=== PATIENT | male | born 1990 | race Caucasian/White ===

== ENCOUNTER 2018-03-18 13:42 | Emergency (ER) | payer MEDICAID ==
[~2018-03-18] VITALS: Ht 177.8 cm; Wt 133.4 kg
[2018-03-18 14:42] VITALS: Ht 177.8 cm; Wt 133.4 kg
[2018-03-18 16:34] LABS: BASOPHIL % 1.5 % (0-2); PLATELET COUNT 297 x10^3mcL (130-400); RED CELL DISTRIBUTION WIDTH 13.4 % (11.5-14.5)
[2018-03-18 16:55] LABS: CALCIUM 9.7 mg/dL (8.5-10.1); CARBON DIOXIDE 29.5 mmol/L (21-32); CHLORIDE SERUM 103 mmol/L (98-107); CREATININE SERUM 0.9 mg/dL (0.7-1.3); GFR1 > 60 mL/min; GLUCOSE SERUM 90 mg/dL (74-106); POTASSIUM SERUM 3.9 mmol/L (3.5-5.1); SODIUM SERUM 142 mmol/L (136-145)
[2018-03-18 17:00] LABS: ALKALINE PHOSPHATASE 79 U/L (46-116); ALT/SGPT 54 U/L (16-63); AST/SGOT 15 U/L (15-37); BILIRUBIN TOTAL 0.76 mg/dL (0.20-1.00); LIPASE 97 IU/L (73-393); TOTAL PROTEIN, SERUM 7.9 g/dL (6.4-8.2)
[2018-03-18 18:26] VITALS: BP 126/66
== END 2018-03-18 18:26 | disposition home or self-care (01) ==
LOC: ED 13:42
PROVIDERS: Emergency Medicine
DX: K57.92 Diverticulitis of intestine, part unspecified, without perforation or abscess without bleeding (principal); Z90.89 Acquired absence of other organs
CPT/HCPCS: 36415; J1885

== ENCOUNTER 2018-05-10 18:49 | Inpatient (IN) | payer MEDICAID ==
[~2018-05-10] VITALS: Ht 177.8 cm; Wt 126.3 kg
[2018-05-10 19:04] VITALS: Ht 177.8 cm; Wt 126.3 kg
[2018-05-10 21:34] LABS: BASOPHIL % 0.4 % (0-2); PLATELET COUNT 264 x10^3mcL (130-400); RED CELL DISTRIBUTION WIDTH 13.5 % (11.5-14.5)
[2018-05-10 21:44] LABS: CALCIUM 10.3 mg/dL (8.5-10.1); CARBON DIOXIDE 25.6 mmol/L (21-32); CHLORIDE SERUM 102 mmol/L (98-107); CREATININE SERUM 0.9 mg/dL (0.7-1.3); GFR1 > 60 mL/min; GLUCOSE SERUM 127 mg/dL (74-106); POTASSIUM SERUM 3.3 mmol/L (3.5-5.1); SODIUM SERUM 139 mmol/L (136-145)
[2018-05-10 22:00] LABS: T3 TOTAL 1.21 ng/mL
[2018-05-10 22:11] LABS: microscopic required? NO
[2018-05-10 22:15] LABS: MAGNESIUM 1.8 mg/dL (1.8-2.4); PHOSPHOROUS 4.6 mg/dL (2.5-4.9)
[2018-05-10 22:19] LABS: urine erythrocyte NEGATIVE (NEGATIVE)
[2018-05-10 22:20] LABS: CHOLESTEROL/HDL RATIO 4.8
[2018-05-10 22:25] LABS: FREE T4 1.33 ng/dL (0.76-1.46); FREE THYROXINE INDEX 3.5 ug/dL (1.4-4.5); T4(THYROXINE) 10.3 ug/dL (4.7-13.3)
[2018-05-10 22:27] LABS: AMPHETAMINE QUAL UR NONE DETECTED (See below)
[2018-05-10 23:09] VITALS: BP 152/69
[2018-05-11 05:26] VITALS: BP 154/75
[2018-05-11 06:37] LABS: CALCIUM 9.3 mg/dL (8.5-10.1); CARBON DIOXIDE 21.9 mmol/L (21-32); CHLORIDE SERUM 103 mmol/L (98-107); GFR1 > 60 mL/min; GLUCOSE SERUM 149 mg/dL (74-106); MAGNESIUM 2.1 mg/dL (1.8-2.4); PHOSPHOROUS 2.9 mg/dL (2.5-4.9); POTASSIUM SERUM 3.8 mmol/L (3.5-5.1); SODIUM SERUM 139 mmol/L (136-145)
[2018-05-11 06:43] LABS: PLATELET COUNT 286 x10^3mcL (130-400); RED CELL DISTRIBUTION WIDTH 14.1 % (11.5-14.5)
[2018-05-11 07:16] LABS: BASOPHIL % 0 % (0-2)
[2018-05-11 09:23] VITALS: BP 147/79
[2018-05-11 13:03] VITALS: BP 142/76
[2018-05-11 17:13] VITALS: BP 145/69
[2018-05-11 20:55] VITALS: BP 142/77
[2018-05-12 05:41] VITALS: BP 126/68
[2018-05-12 06:18] LABS: CARBON DIOXIDE 23.4 mmol/L (21-32); CHLORIDE SERUM 106 mmol/L (98-107); CREATININE SERUM 0.7 mg/dL (0.7-1.3); GFR1 > 60 mL/min; GLUCOSE SERUM 144 mg/dL (74-106); PHOSPHOROUS 3.6 mg/dL (2.5-4.9); SODIUM SERUM 141 mmol/L (136-145)
[2018-05-12 07:42] LABS: BASOPHIL % 0.1 % (0-2); PLATELET COUNT 319 x10^3mcL (130-400); RED CELL DISTRIBUTION WIDTH 13.8 % (11.5-14.5)
[2018-05-12 08:22] VITALS: BP 131/67
[2018-05-12 12:30] VITALS: BP 135/67
[2018-05-12 16:20] VITALS: BP 151/72
[2018-05-12 20:49] VITALS: BP 142/67
[2018-05-13 06:02] VITALS: BP 136/79
[2018-05-13 07:00] LABS: PLATELET COUNT 336 x10^3mcL (130-400)
[2018-05-13 08:40] VITALS: BP 148/79
[2018-05-13 11:21] LABS: BAND NEUTROPHIL 7 % (0-10); BASOPHIL 0 % (0-2); MONOCYTE 3 % (0-7); SEGMENTED NEUTROPHILS 82 % (37-75)
[2018-05-13 11:23] LABS: PLATELET MORPHOLOGY PLATELETS NORMAL; rbc morphology (normal/abnorm) ABNORMAL (NORMAL)
[2018-05-13] MEDS ORDERED: QVAR REDIHALE10.6 G1 IH (12:33)
[2018-05-13] MEDS ORDERED: PROVENTIL0.09 MG/A1 INH (12:35)
[2018-05-13] MEDS ORDERED: PREDNISONE50 MG PO (12:36)
[2018-05-13 12:54] VITALS: BP 148/79
[2018-05-13 13:50] VITALS: BP 155/80
== END 2018-05-13 15:18 | disposition home or self-care (01) | DRG 133 ==
LOC: ED 18:49 → DU 21:29 → MU 21:29 → DU 05-11 01:11
PROVIDERS: Emergency Medicine; Internal Medicine
DX: J96.01 Acute respiratory failure with hypoxia (principal); E66.01 Morbid (severe) obesity due to excess calories; J45.901 Unspecified asthma with (acute) exacerbation; Z68.41 Body mass index [BMI] 40.0-44.9, adult; E83.52 Hypercalcemia; I16.0 Hypertensive urgency; E87.6 Hypokalemia; E78.5 Hyperlipidemia, unspecified; T48.6X5A Adverse effect of antiasthmatics, initial encounter; Y92.238 Other place in hospital as the place of occurrence of the external cause
CPT/HCPCS: 83880; 84439; 94150; J2930; J3475; J7030; J7512; J7613; J7620; J7626; J7644; Q0092

== ENCOUNTER 2019-07-02 16:31 | Emergency (ER) | payer OTHER ==
[~2019-07-02] VITALS: Ht 177.8 cm; Wt 120.7 kg
[~2019-07-02 16:31] MED LIST: PREDNISONE50 MG PO; PROVENTIL0.09 MG/A1 INH; QVAR REDIHALE10.6 G1 IH
[2019-07-02 17:04] VITALS: Ht 177.8 cm; Wt 120.7 kg
[2019-07-02 19:05] LABS: BASOPHIL % 0.3 % (0-2); PLATELET COUNT 285 x10^3mcL (130-400); RED CELL DISTRIBUTION WIDTH 13.5 % (11.5-14.5)
[2019-07-02 19:13] LABS: CALCIUM 8.5 mg/dL (8.5-10.1); CARBON DIOXIDE 26.8 mmol/L (21-32); CHLORIDE SERUM 102 mmol/L (98-107); GFR1 > 60 mL/min; GLUCOSE SERUM 91 mg/dL (74-106); POTASSIUM SERUM 3.7 mmol/L (3.5-5.1); SODIUM SERUM 137 mmol/L (136-145)
[2019-07-02 19:18] LABS: ALKALINE PHOSPHATASE 69 U/L (46-116); ALT/SGPT 41 U/L (16-63); AST/SGOT 19 U/L (15-37); LIPASE 61 IU/L (73-393); TOTAL PROTEIN, SERUM 7.3 g/dL (6.4-8.2)
[2019-07-02 23:43] VITALS: BP 104/62
== END 2019-07-02 23:43 | disposition short-term general hospital (02) ==
LOC: ED 16:31
PROVIDERS: Emergency Medicine
DX: K57.92 Diverticulitis of intestine, part unspecified, without perforation or abscess without bleeding (principal); Z90.89 Acquired absence of other organs
CPT/HCPCS: J2270; J2405; J2543; J3010; J7030